=== PATIENT | female | born 1990 | race Caucasian/White ===

== ENCOUNTER 2024-09-15 09:44 | Outpatient (AMB) | payer BC, MEDICARE, SELFPAY ==
--- NOTE | 2024-09-15 12:48 | MHC.OFFWIV ---
Intake Vital Signs 09/15/24 12:49 Weight 154 lb BP 120/80 Blood Pressure Location Rt brachial Position Sitting Pulse 79 Pulse Source Pulse Oximeter Temp 97.7 F Temp Source Oral Pulse Oximetry (%) 99 Oxygen Delivery Method Room Air Intake Visit Reasons: EP headaches, cough, body aches, fever Intake Note: Patient here for cough, headaches, fevers, body aches and SOB which started about 1 week ago. Patient Tobacco Use Status: Never used Tobacco Allergies amoxicillin [AMOXICILLIN] Allergy (Unknown, Verified 09/15/24 12:50) HIVES oxycodone [OXYCODONE] Adverse Reaction (Unknown, Verified 09/15/24 12:50) NAUSEA & VOMITING Do you need a note to return to daycare/school/sports/work: Yes HPI HPI Comments History of Present Illness Details This is a 34-year-old female with a past medical history of epilepsy, last seizure 3 years ago and asthma presenting for evaluation of a cough, body aches and subjective fevers that she has had for the past 1 week. Patient states that her cough is worse during the day and she has been taking Delsym with minimal relief of her discomfort. Patient denies having any otalgia, chills, chest pain or overt shortness for breath. [facility] Medical History (Updated 09/15/24 @ 13:10 by Sharifa Delaney PA-C) Acute upper respiratory infection Social History Patient Tobacco Use Status: Never used Tobacco Review of Systems Const All systems reviewed & are unremarkable except as noted in HPI and below Reports no additional complaints, Reports body aches, Denies chills, Reports fever(s) (subjective) and Reports malaise Eyes Reports no additional complaints ENT Reports no additional complaints, Denies otalgia and Denies sore throat Card Reports no additional complaints, Denies chest pain and Denies dyspnea Resp Reports no additional complaints, Reports cough and Denies dyspnea GI Reports no additional complaints Reports no additional complaints Musc Reports no additional complaints Skin/Breast Reports system reviewed and no additional complaints, except as documented Neuro Reports no additional complaints Psych Reports no additional complaints Endo Reports no additional complaints Lew/Lymph Reports no additional complaints Aller/Immun Reports no additional complaints Physical Exam Vital Signs: Last Vital Signs Temp 97.7 F 09/15/24 12:49 Pulse 79 09/15/24 12:49 BP 120/80 09/15/24 12:49 Pulse Ox 99 09/15/24 12:49 Oxygen Delivery Method Room Air 09/15/24 12:49 Const General: cooperative, healthy appearing, comfortable, no acute distress, well developed, alert, awake and Physically active; No acute distress or lethargic Nutritional Appearance: average body habitus Orientation/consciousness: patient oriented x3 and No lethargic Limitations: no limitations HEENT Head: Yes normal to inspection and Yes normocephalic Ears: hearing grossly normal bilaterally, external ears normal, TM's normal bilaterally and EAC's normal General nose exam: Normal external nose present Face and sinus: Yes normal facial exam and Yes sinuses nontender Mouth: Normal oral and palatal mucosa present and moist mucous membranes Throat: Yes posterior oropharynx normal Eyes General: appearance normal, both eyes and all related structures Conjunctivae: conjunctivae normal EOM: EOMs intact bilaterally Neck Lymphatic: no lymphadenopathy noted Resp Effort & Inspection: normal respiratory effort, able to speak in complete sentences, no audible wheezes, no cough and no respiratory distress Auscultation: clear to auscultation bilaterally Cardio Rate: regular rate Rhythm: regular rhythm Skin General skin exam: no rashes or lesions noted Neuro General: patient oriented x3 Psych Appearance: grossly normal Mental Status: mental status grossly normal Insight: Good insight present (Psych) Judgement: Good judgement present (Psych) Assessment & Plan Assessment & Plan (1) Acute upper respiratory infection: Comment: SARS panel is ordered and results are pending. Code(s): J06.9 - Acute upper respiratory infection, unspecified Plan: Continue dose some OTC as needed, increase clear fluids daily, Mucinex, tea with honey and ibuprofen or Tylenol for myalgias. Orders: Orders SARS-CoV2/FLU/RSV Today J06.9 - Acute upper respiratory infection, unspecified Coding Level of Care Code Est Pt Level 3 (37636) Diagnoses Acute upper respiratory infection J06.9 Time Spent (min) 20
[2024-09-15 12:49] VITALS: BP 120/80; PULSE 79; TEMP 36.5; O2SAT 99
== END 2024-09-15 13:19 | disposition home or self-care (01) ==
PROVIDERS: PCP Family Medicine; Visit Provider Physician Assistant
DX: J06.9 Acute upper respiratory infection, unspecified (principal)

== ENCOUNTER → 2024-09-15 09:44 | Outpatient (BNVA) | payer BC, MEDICARE, SELFPAY | PROVIDERS: PCP Family Medicine ==

== ENCOUNTER 2024-09-16 10:25 | Outpatient (REF) | payer BC, MEDICARE, SELFPAY ==
[2024-09-16 11:38] LABS: Influenza A PCR NEGATIVE (Negative); Influenza B PCR POSITIVE (Negative); Resp Syncy Virus RNA Qual PCR NEGATIVE (Negative); SARS COV2 PCR INHOUSE NEGATIVE (Negative)
== END 2024-09-16 10:26 | disposition home or self-care (01) ==
LOC: HO.LNP 10:25
PROVIDERS: Visit Provider Physician Assistant
DX: J06.9 Acute upper respiratory infection, unspecified (principal)
CPT/HCPCS: 0241U